=== PATIENT | male | born 1945 | race Caucasian/White ===

== ENCOUNTER 2022-03-06 15:03 | Emergency (ER) | payer BC, OTHER ==
[~2022-03-06] VITALS: Ht 175.3 cm; Wt 83.9 kg
[2022-03-06] MEDS ORDERED: SODIUM CHLORIDE 0.9% 1,000 ML IV ONE (17:15)
[2022-03-06] MEDS ORDERED: KETOROLAC TROMETH 30 MG/ML 1ML VIAL IV ONE (17:15)
[2022-03-06] MEDS ORDERED: ASPirin 81 mg TAB PO ONE (17:15)
[2022-03-06 18:59] VITALS: BP 153/82
[2022-03-06 19:31] LABS: Alanine Aminotransferase 70 U/L (16-61); Albumin 4.3 g/dL (3.4-5.0); Anion Gap 8 (5-15); Aspartate Aminotransferase 36 U/L (15-37); BUN/Creatinine Ratio 19.8; Blood Urea Nitrogen 35 mg/dL (7-18); Carbon Dioxide 24 mmol/L (21-32); Chloride 108 mmol/L (98-107); GFR African American 48 mL/min; GFR Non-African American 40 mL/min; Glucose 91 mg/dL (74-106); Magnesium 3.2 mg/dL (1.6-2.6); Potassium 4.5 mmol/L (3.5-5.1); Sodium 140 mmol/L (136-145)
[2022-03-06 19:32] LABS: Basophils # (auto) 0.1 10 ^3/uL (0-0.2); Basophils % (auto) 0.8 % (0.0-2.0); Eosinophils # (auto) 0.3 10 ^3/uL (0-0.8); Eosinophils % (auto) 4.3 % (0.0-7.0); Hematocrit 38.7 % (41.0-53.0); Hemoglobin 13.5 g/dL (13.5-17.5); Lymphocytes % (auto) 28.9 % (10.0-50.0); Mean Corpuscular Hemoglobin 32.8 pg (28.0-32.0); Mean Corpuscular Hgb Conc. 34.9 g/dL (32.0-36.0); Mean Corpuscular Volume 94.2 fL (80.0-100.0); Monocytes # (auto) 0.7 10 ^3/uL (0-1.3); Monocytes % (auto) 9.8 % (0.0-12.0); Neutrophils % (auto) 56.2 % (37.0-80.0); Red Cell Distribution Width 13.1 % (11.8-14.3); White Blood Cell 7.1 10^3/uL (4.4-10.8)
[2022-03-06 19:34] LABS: Alkaline Phosphatase 113 U/L (45-117); Bilirubin, Total 1.7 mg/dL (0.2-1.0); Total Protein 7.5 g/dL (6.4-8.2)
[2022-03-06] MEDS ORDERED: NAP500T PO (20:44)
== END 2022-03-06 21:44 | disposition home or self-care (01) ==
LOC: ER 15:03
DX: R07.89 Other chest pain (principal); E83.41 Hypermagnesemia; I12.9 Hypertensive chronic kidney disease with stage 1 through stage 4 chronic kidney disease, or unspecified chronic kidney disease; N18.30 Chronic kidney disease, stage 3 unspecified
CPT/HCPCS: 36415; 71046; 80053; 83735; 84443; 84484; 85025; 85379; 93005; 96361; 96374; 99285; J1885; J7030